=== PATIENT | female | born 1945 | race Two or more races ===

== ENCOUNTER 2017-07-04 14:05 | Outpatient (CLI) | payer OTHER | END 2017-07-04 14:16 | disposition home or self-care (01) | LOC: SONOGRAMA 14:05 | DX: E21.2 Other hyperparathyroidism (principal); E03.1 Congenital hypothyroidism without goiter; E04.1 Nontoxic single thyroid nodule ==

== ENCOUNTER → 2019-03-07 | Outpatient (CLI) | payer OTHER | END | disposition home or self-care (01) | LOC: MRI 13:56 | DX: I63.30 Cerebral infarction due to thrombosis of unspecified cerebral artery (principal) | CPT/HCPCS: 70551 ==

== ENCOUNTER 2019-11-08 11:38 | Outpatient (CLI) | payer OTHER | END 2019-11-08 11:44 | disposition home or self-care (01) | LOC: NUCLEAR 11:38 | PROVIDERS: ATTEND General Practice | DX: M81.0 Age-related osteoporosis without current pathological fracture (principal) ==

== ENCOUNTER 2021-06-13 10:37 | Outpatient (CLI) | payer OTHER | END 2021-06-13 10:42 | disposition home or self-care (01) | LOC: LAB 10:37 | DX: Z11.52 Encounter for screening for COVID-19 (principal); Z20.828 Contact with and (suspected) exposure to other viral communicable diseases; R05.9 Cough, unspecified ==

== ENCOUNTER → 2021-06-15 | Outpatient (CLI) | payer OTHER | END | disposition home or self-care (01) | LOC: NUCLEAR 11:15 | PROVIDERS: ATTEND Internal Medicine Cardiovascular Disease | DX: M81.0 Age-related osteoporosis without current pathological fracture (principal); Z88.8 Allergy status to other drugs, medicaments and biological substances ==

== ENCOUNTER 2021-06-22 11:23 | Outpatient (CLI) | payer OTHER | END 2021-06-22 11:29 | disposition home or self-care (01) | LOC: SONOGRAMA 11:23 | PROVIDERS: ATTEND Internal Medicine Endocrinology, Diabetes & Metabolism | DX: E04.1 Nontoxic single thyroid nodule (principal) ==

== ENCOUNTER 2021-06-23 09:33 | Outpatient (CLI) | payer OTHER | END 2021-06-23 09:34 | disposition home or self-care (01) | LOC: NUCLEAR 09:33 | PROVIDERS: ATTEND Internal Medicine Endocrinology, Diabetes & Metabolism | DX: E21.4 Other specified disorders of parathyroid gland (principal); M81.0 Age-related osteoporosis without current pathological fracture | CPT/HCPCS: 78071; A9500 ==

== ENCOUNTER 2021-07-22 12:00 | Outpatient (CLI) | payer OTHER | END 2021-07-22 12:05 | disposition home or self-care (01) | LOC: TOM 12:00 | PROVIDERS: ATTEND Otolaryngology | DX: J32.3 Chronic sphenoidal sinusitis (principal); J01.90 Acute sinusitis, unspecified ==

== ENCOUNTER 2021-08-18 14:29 | Outpatient (CLI) | payer OTHER | END 2021-08-18 14:34 | disposition home or self-care (01) | LOC: RAD 14:29 | DX: E21.0 Primary hyperparathyroidism (principal) ==

== ENCOUNTER 2021-08-26 06:16 | Day surgery (SDC) | payer OTHER ==
[2021-08-26] MEDS ORDERED: PERCOCET 5-3251 EACH PO (10:50)
== END 2021-08-26 13:00 | disposition home or self-care (01) ==
LOC: CIR.AMB 06:16
PROVIDERS: ATTEND Surgery
DX: D34 Benign neoplasm of thyroid gland (principal); E21.0 Primary hyperparathyroidism; Z88.8 Allergy status to other drugs, medicaments and biological substances

== ENCOUNTER 2022-02-26 11:38 | Outpatient (CLI) | payer OTHER ==
[~2022-02-26 11:38] MED LIST: PERCOCET 5-3251 EACH PO
== END 2022-02-26 12:00 | disposition home or self-care (01) ==
LOC: SONOGRAMA 11:38
PROVIDERS: ATTEND Internal Medicine Endocrinology, Diabetes & Metabolism
DX: E04.1 Nontoxic single thyroid nodule (principal)

== ENCOUNTER 2022-10-07 13:30 | Outpatient (CLI) | payer OTHER | END 2022-10-07 13:34 | disposition home or self-care (01) | LOC: NUCLEAR 13:30 | PROVIDERS: ATTEND Internal Medicine Endocrinology, Diabetes & Metabolism | DX: M81.0 Age-related osteoporosis without current pathological fracture (principal); E03.1 Congenital hypothyroidism without goiter; E04.1 Nontoxic single thyroid nodule ==

== ENCOUNTER 2024-02-15 11:42 | Emergency (ER) | payer OTHER ==
[~2024-02-15] VITALS: Ht 147.3 cm; Wt 39.0 kg
[2024-02-15 12:01] VITALS: BP 108/60; O2SAT 99
[2024-02-15] MEDS ORDERED: KETOROLAC TROMETHAMINE 60 MG VIAL IM ONE ×2 (12:45)
== END 2024-02-15 14:16 | disposition home or self-care (01) ==
LOC: ER 11:45
DX: S93.492A Sprain of other ligament of left ankle, initial encounter (principal); W19.XXXA Unspecified fall, initial encounter; Y93.89 Activity, other specified; Y92.89 Other specified places as the place of occurrence of the external cause; Y99.8 Other external cause status; Z88.8 Allergy status to other drugs, medicaments and biological substances
CPT/HCPCS: 73610; 96372; 99283; J1885

== ENCOUNTER 2024-02-23 19:11 | Emergency (ER) | payer OTHER ==
[~2024-02-23] VITALS: Ht 152.4 cm; Wt 39.9 kg
[2024-02-23] MEDS ORDERED: GUAIFENESIN/DEXTROMETHORPHAN 10ML BLIST.PACK PO ONE ×2 (21:15→21:22)
[2024-02-23] MEDS ORDERED: 0.9 % SODIUM CHLORIDE 1,000 ML IV SCH (21:30)
[2024-02-23 22:08] LABS: HEMATOCRIT 31.8 % (36.0-45.00); HEMOGLOBIN 11.4 g/dL (12.0-15.00); MEAN CELL VOLUME 83.9 fL (80.00-100.00); MEAN CORPUSCULAR HEMOGLOBIN 30.1 pg (27.00-32.0); MEAN CORPUSCULAR HGB CONC 35.8 g/dl (32.0-36.0); PLATELET COUNT 212 K/uL (150-450); RED BLOOD COUNT 3.79 M/uL (4.00-6.00); RED CELL DISTRIBUTION WIDTH 13.1 % (11.5-14.5)
[2024-02-23 22:33] LABS: ALBUMIN 2.8 gm/dL (3.4-5.0); BILIRUBIN TOTAL 0.29 mg/dL (0.3-1.2); CREATININE SERUM 0.72 mg/dL (0.55-1.02); GFR 78.14; GLOBULINA 3.8 G/DL (2.4-3.5); POTASSIUM 3.23 mEq/L (3.5-5.1); TOTAL PROTEIN 6.6 gm/dL (6.4-8.2)
[2024-02-23] MEDS ORDERED: TUSNEL LIQUID178 ML PO (22:43)
[2024-02-23] MEDS ORDERED: OSEL75CA PO (22:43)
[2024-02-23] MEDS ORDERED: DOLOGEN CAPLET1 EACH PO (22:43)
[2024-02-23] MEDS ORDERED: FAMOTIDINE/PF 20 MG in 0.9 % SODIUM CHLORIDE 8 ML IV PUSH STA (22:44)
[2024-02-23] MEDS ORDERED: OSELTAMIVIR PHOSPHATE 75 MG CAPSULE PO ONE ×2 (22:45→22:47)
[2024-02-23] MEDS ORDERED: FAMOTIDINE/PF 20 MG/2 ML VIAL ONE (22:47)
== END 2024-02-24 00:05 | disposition home or self-care (01) ==
LOC: ER 19:11
PROVIDERS: General Practice
DX: J10.1 Influenza due to other identified influenza virus with other respiratory manifestations (principal); R53.1 Weakness; Z20.822 Contact with and (suspected) exposure to COVID-19; Z88.8 Allergy status to other drugs, medicaments and biological substances
CPT/HCPCS: 36415; 96365; 96366; 99282; J7030

== ENCOUNTER 2024-04-10 10:08 | Outpatient (CLI) | payer OTHER ==
[~2024-04-10 10:08] MED LIST changes: +DOLOGEN CAPLET1 EACH PO; +OSEL75CA PO; +TUSNEL LIQUID178 ML PO
== END 2024-04-10 10:12 | disposition home or self-care (01) ==
LOC: TOM 10:08
PROVIDERS: ATTEND Internal Medicine
DX: S09.90XA Unspecified injury of head, initial encounter (principal)

== ENCOUNTER 2024-04-10 11:16 | Emergency (ER) | payer OTHER ==
[~2024-04-10] VITALS: Ht 149.9 cm; Wt 39.9 kg
[2024-04-10] MEDS ORDERED: LevETIRAcetam 500 MG/5 ML VIAL IV SCH (11:40)
[2024-04-10] MEDS ORDERED: FAMOtidine 10 MG/ML (4ML VIAL) IV ONE (11:45)
[2024-04-10] MEDS ORDERED: FAMOTIDINE/PF 20 MG/2 ML VIAL ONE (12:07)
[2024-04-10] MEDS ORDERED: LevETIRAcetam 500 MG/5 ML VIAL IV ONE (12:07)
[2024-04-10 13:21] LABS: HEMATOCRIT 36.1 % (36.0-45.00); HEMOGLOBIN 12.3 g/dL (12.0-15.00); MEAN CELL VOLUME 87.1 fL (80.00-100.00); MEAN CORPUSCULAR HEMOGLOBIN 29.6 pg (27.00-32.0); PLATELET COUNT 245 K/uL (150-450); RED BLOOD COUNT 4.14 M/uL (4.00-6.00); RED CELL DISTRIBUTION WIDTH 15.1 % (11.5-14.5)
[2024-04-10 13:35] LABS: ALBUMIN 3.6 gm/dL (3.4-5.0); BILIRUBIN TOTAL 0.47 mg/dL (0.3-1.2); CALCIUM 8.6 mg/dL (8.5-10.1); CREATININE SERUM 0.54 mg/dL (0.55-1.02); GFR 108.9; GLOBULINA 3.8 G/DL (2.4-3.5); POTASSIUM 3.86 mEq/L (3.5-5.1); TOTAL PROTEIN 7.4 gm/dL (6.4-8.2)
[2024-04-10 13:36] LABS: INR 0.99; PARTIAL THROMBOPLASTIN TIME 28.4 SECONDS (22.0-34.0); PROTHROMBIN TIME 10.8 SECONDS (9.0-11.5)
[2024-04-10 13:39] LABS: PH,URINE 7.5 (5.0-8.0); URINE APPEARANCE Clear; URINE BILIRRUBIN Negative (NEGATIVE); URINE BLOOD Trace; URINE COLOR Yellow; URINE GLUCOSE Negative (NEGATIVE); URINE KETONE Negative (NEGATIVE); URINE LEUKOCYTE Negative; URINE NITRATE Negative; URINE PROTEIN Negative (NEGATIVE); URINE UROBILINOGEN 0.2 E.U./dl
[2024-04-10 13:45] LABS: URINE RBC 13.9 uL (0.0-20.8)
[2024-04-10 13:51] LABS: URINE BACTERIA 1.2 uL (0.0-1933); URINE EPITHELIAL CELLS 0.6 uL (0.0-38.8); URINE WBC 1.4 uL (0.0-23.2)
== END 2024-04-10 18:50 | disposition designated cancer center or children's hospital (05) ==
LOC: ER
PROVIDERS: General Practice
DX: I62.00 Nontraumatic subdural hemorrhage, unspecified (principal); R42 Dizziness and giddiness; Z88.8 Allergy status to other drugs, medicaments and biological substances
CPT/HCPCS: 36415; 71046; 72125; 72170; 93005; 96365; 99285; J3490

== ENCOUNTER 2024-05-28 11:01 | Outpatient (CLI) | payer OTHER | END 2024-05-28 11:03 | disposition home or self-care (01) | LOC: TOM 11:01 | DX: S06.5X0A Traumatic subdural hemorrhage without loss of consciousness, initial encounter (principal) ==

== ENCOUNTER → 2024-05-28 | Emergency (ER) | payer OTHER ==
[~2024-05-28] VITALS: Ht 152.4 cm; Wt 39.0 kg
[2024-05-28 16:12] LABS: HEMATOCRIT 40.1 % (36.0-45.00); HEMOGLOBIN 13.4 g/dL (12.0-15.00); MEAN CORPUSCULAR HEMOGLOBIN 29.5 pg (27.00-32.0); MEAN CORPUSCULAR HGB CONC 33.5 g/dl (32.0-36.0); PLATELET COUNT 241 K/uL (150-450); RED BLOOD COUNT 4.55 M/uL (4.00-6.00); RED CELL DISTRIBUTION WIDTH 13.7 % (11.5-14.5)
[2024-05-28 16:31] LABS: INR 0.95; PARTIAL THROMBOPLASTIN TIME 26.2 SECONDS (22.0-34.0); PROTHROMBIN TIME 10.4 SECONDS (9.0-11.5)
[2024-05-28 16:35] LABS: ALBUMIN 3.7 gm/dL (3.4-5.0); BILIRUBIN TOTAL 0.31 mg/dL (0.3-1.2); CALCIUM 9.6 mg/dL (8.5-10.1); CREATININE SERUM 0.57 mg/dL (0.55-1.02); GFR 102.32; GLOBULINA 3.8 G/DL (2.4-3.5); POTASSIUM 4.21 mEq/L (3.5-5.1); TOTAL PROTEIN 7.5 gm/dL (6.4-8.2)
[2024-05-28 19:40] VITALS: BP 140/64; O2SAT 98
== END | disposition designated cancer center or children's hospital (05) ==
LOC: ER 13:15
PROVIDERS: Emergency Medicine
DX: I62.03 Nontraumatic chronic subdural hemorrhage (principal); R53.81 Other malaise; Z88.8 Allergy status to other drugs, medicaments and biological substances

== ENCOUNTER 2024-06-04 17:12 | Inpatient (IN) | payer OTHER ==
[~2024-06-04] VITALS: Ht 162.6 cm; Wt 40.8 kg
[2024-06-04 18:49] LABS: HEMATOCRIT 37.5 % (36.0-45.00); MEAN CELL VOLUME 87.1 fL (80.00-100.00); MEAN CORPUSCULAR HGB CONC 34.5 g/dl (32.0-36.0); PLATELET COUNT 220 K/uL (150-450); RED BLOOD COUNT 4.31 M/uL (4.00-6.00); RED CELL DISTRIBUTION WIDTH 13.5 % (11.5-14.5)
[2024-06-04 19:02] LABS: INR 0.97; PARTIAL THROMBOPLASTIN TIME 22.8 SECONDS (22.0-34.0); PROTHROMBIN TIME 10.6 SECONDS (9.0-11.5)
[2024-06-04 19:07] LABS: ALBUMIN 3.4 gm/dL (3.4-5.0); BILIRUBIN TOTAL 0.35 mg/dL (0.3-1.2); CALCIUM 9.5 mg/dL (8.5-10.1); CREATININE SERUM 0.76 mg/dL (0.55-1.02); GFR 73.41; GLOBULINA 3.5 G/DL (2.4-3.5); POTASSIUM 4.04 mEq/L (3.5-5.1); TOTAL PROTEIN 6.9 gm/dL (6.4-8.2)
[2024-06-04] MEDS ORDERED: ONDANSETRON HCL 4 MG in 0.9 % SODIUM CHLORIDE 50 ML IV PRN (20:30)
[2024-06-04] MEDS ORDERED: MORPHINE SULFATE 2 MG/ML CARTRIDGE IV PRN (20:30)
[2024-06-04] MEDS ORDERED: ACETAMINOPHEN 500 MG GEL..CAP PO PRN (20:30)
[2024-06-04 22:08] LABS: URINE APPEARANCE Clear; URINE BILIRRUBIN Negative (NEGATIVE); URINE BLOOD Negative; URINE COLOR Yellow; URINE GLUCOSE Negative (NEGATIVE); URINE KETONE Negative (NEGATIVE); URINE LEUKOCYTE Negative; URINE NITRATE Negative; URINE PROTEIN Negative (NEGATIVE); URINE UROBILINOGEN 0.2 E.U./dl
[2024-06-04 22:12] LABS: URINE BACTERIA 14.6 uL (0.0-1933); URINE EPITHELIAL CELLS 1.5 uL (0.0-38.8); URINE RBC 8.9 uL (0.0-20.8)
[2024-06-04 22:13] LABS: COVID-19 AG NEGATIVE (NEGATIVE)
[2024-06-04 22:21] LABS: URINE CAST 0.14 uL (0.0-1.40); URINE WBC 1.2 uL (0.0-23.2)
[2024-06-05] MEDS ORDERED: FAMOTIDINE/PF 20 MG in 0.9 % SODIUM CHLORIDE 8 ML IV PUSH SCH (09:00)
[2024-06-05] MEDS ORDERED: CEFAZOLIN SODIUM 1,000 MG VIAL ONE (13:51)
[2024-06-05] MEDS ORDERED: BUPIVACAINE HCL/Mpf 0.5% 10ML VIAL ONE (15:04)
[2024-06-06 02:15] VITALS: BP 134/63; O2SAT 96
[2024-06-06 08:30] LABS: HEMATOCRIT 36.6 % (36.0-45.00); HEMOGLOBIN 12.5 g/dL (12.0-15.00); MEAN CORPUSCULAR HEMOGLOBIN 29.5 pg (27.00-32.0); MEAN CORPUSCULAR HGB CONC 34.2 g/dl (32.0-36.0); PLATELET COUNT 203 K/uL (150-450); RED BLOOD COUNT 4.25 M/uL (4.00-6.00); RED CELL DISTRIBUTION WIDTH 13.3 % (11.5-14.5)
[2024-06-06 09:00] VITALS: BP 124/59
[2024-06-06 09:33] LABS: ALBUMIN 3.3 gm/dL (3.4-5.0); BILIRUBIN TOTAL 0.93 mg/dL (0.3-1.2); CALCIUM 8.4 mg/dL (8.5-10.1); CREATININE SERUM 0.45 mg/dL (0.55-1.02); GFR 134.41; POTASSIUM 3.53 mEq/L (3.5-5.1); TOTAL PROTEIN 6.3 gm/dL (6.4-8.2)
== END 2024-06-06 16:06 | disposition home or self-care (01) | DRG 488 ==
LOC: ER 17:12 → MEDJ 23:32
PROVIDERS: General Practice; ADMIT Internal Medicine; ATTEND Internal Medicine
PROC: B020ZZZ Computerized Tomography (CT Scan) of Brain (ICD-10-PCS; 2024-06-04)
PROC: 0SBC0ZZ Excision of Right Knee Joint, Open Approach (ICD-10-PCS; principal; 2024-06-05)
PROC: 0LQL0ZZ Repair Right Upper Leg Tendon, Open Approach (ICD-10-PCS; 2024-06-05)
PROC: 0QSD04Z Reposition Right Patella with Internal Fixation Device, Open Approach (ICD-10-PCS; 2024-06-05)
PROC: 0SBC0ZZ Excision of Right Knee Joint, Open Approach (ICD-10-PCS; 2024-06-05)
DX: S82.091A Other fracture of right patella, initial encounter for closed fracture (principal); S06.5XAA Traumatic subdural hemorrhage with loss of consciousness status unknown, initial encounter; S76.111A Strain of right quadriceps muscle, fascia and tendon, initial encounter; M65.861 Other synovitis and tenosynovitis, right lower leg; M12.561 Traumatic arthropathy, right knee; L53.8 Other specified erythematous conditions; R05.8 Other specified cough; W01.0XXA Fall on same level from slipping, tripping and stumbling without subsequent striking against object, initial encounter; Y93.01 Activity, walking, marching and hiking; Y92.480 Sidewalk as the place of occurrence of the external cause

== ENCOUNTER 2024-06-07 13:34 | Outpatient (CLI) | payer OTHER | END 2024-06-07 13:39 | disposition home or self-care (01) | LOC: RAD 13:34 | PROVIDERS: ATTEND Orthopaedic Surgery | DX: M79.641 Pain in right hand (principal); M79.642 Pain in left hand; M25.531 Pain in right wrist; M25.532 Pain in left wrist ==

== ENCOUNTER → 2024-07-05 | Outpatient (CLI) | payer OTHER | END | disposition home or self-care (01) | LOC: RAD 09:53 | PROVIDERS: ATTEND Orthopaedic Surgery | DX: S82.031D Displaced transverse fracture of right patella, subsequent encounter for closed fracture with routine healing (principal) ==

== ENCOUNTER 2024-07-12 10:52 | Outpatient (CLI) | payer OTHER | END 2024-07-12 11:00 | disposition home or self-care (01) | LOC: RAD 10:52 | PROVIDERS: ATTEND Orthopaedic Surgery | DX: S82.031D Displaced transverse fracture of right patella, subsequent encounter for closed fracture with routine healing (principal) ==

== ENCOUNTER 2024-08-24 10:44 | Outpatient (CLI) | payer OTHER | END 2024-08-24 10:45 | disposition home or self-care (01) | LOC: NUCLEAR 10:44 | PROVIDERS: ATTEND Orthopaedic Surgery | DX: M81.0 Age-related osteoporosis without current pathological fracture (principal) ==

== ENCOUNTER 2024-10-03 12:17 | Outpatient (CLI) | payer OTHER | END 2024-10-03 12:19 | disposition home or self-care (01) | LOC: RAD 12:17 | PROVIDERS: ATTEND Orthopaedic Surgery | DX: M54.50 Low back pain, unspecified (principal) ==